=== PATIENT | female | born 1955 | race Asian ===

== ENCOUNTER → 2016-06-15 | Outpatient (CLI) | payer OTHER ==
[~2016-06-15] MED LIST: APRACLONIDINE 1% 0.1 ML OPH ONE; BENA20TA48 PO; DICL75TA2 PO; GABA300C16 PO; GLIP-95 PO; LORA10TA3 PO; LOVA20TA PO; METF850T PO; OPHTHALMIC IRRIG SOLUTION 120 ML ONE; PHENYLephrine 10% 5 ML OPH ONE; PROPARACAINE 0.5% 15 ML OPH ONE; RANI150T5 PO; SITA100T8 PO; TROPICAMIDE 1% 3 ML OPH ONE
== END | disposition home or self-care (01) ==
LOC: RAD 10:02
PROVIDERS: ATTEND Ophthalmology
DX: H26.9 Unspecified cataract (principal)
CPT/HCPCS: Z7610 ×5